=== PATIENT | female | born 1970 | race Caucasian/White ===

== ENCOUNTER 2018-02-03 07:47 | Day surgery (SDC) | payer BC ==
[~2018-02-03 07:47] MED LIST: Lactated Ringers 1,000 ML IV SCH; Propofol 200 MG/20 ML SDV ONE; Sodium Chloride 0.9% 10 ML Syringe FLUSH PRN
[2018-02-03] MEDS ORDERED: Propofol 200 MG/20 ML SDV ONE (08:43)
[2018-02-03] MEDS ORDERED: Glycopyrrolate 0.2 MG/ML SDV ONE (08:43)
[2018-02-03] MEDS ORDERED: Lidocaine 2% 100 MG/5 ML Syringe ONE (08:43)
--- NOTE | 2018-02-03 08:46 | PCM.PN ---
- General Info Date of Service: 02/03/18 - Review of Systems Systems Review Comment:: 48-year-old female referred for EGD. She has a history of mid upper chest pain not improved with PPI agent. This is improved with Maalox. I have discussed the proposed upper endoscopy with the patient. Her recent history and physical is reviewed and no significant changes are noted.She agrees to proceed accepting risks. - Patient Data Vitals - Most Recent: Last Vital Signs Temp 97.4 F 02/03/18 08:06 Pulse 67 02/03/18 08:06 Resp 20 02/03/18 08:06 BP 142/91 H 02/03/18 08:06 Pulse Ox 95 02/03/18 08:06 Weight - Most Recent: 63.503 kg Med Orders - Current: Current Medications Lactated Ringer's (Ringers, Lactated) 1,000 mls @ 125 mls/hr IV ASDIRECTED MACARIO Last Admin: 02/03/18 08:15 Dose: 125 mls/hr Sodium Chloride (Saline Flush) 10 ml FLUSH ASDIRECTED PRN PRN Reason: Keep Vein Open Discontinued Medications Propofol (Diprivan 20 Ml) Confirm Administered Dose 400 mg .ROUTE .STK-MED ONE Stop: 02/03/18 07:42 - Problem List Review Problem List Initiated/Reviewed/Updated: Yes - Assessment Assessment:: chest pain - Plan Plan:: EGD
--- NOTE | 2018-02-03 09:12 | PCM.OPNOTE ---
- General Post-Op/Procedure Note Date of Surgery/Procedure: 02/03/18 Operative Procedure(s): EGD with Biopsy Findings: Scattered areas of white coating in esophagus suggestive of desirae esophagitis Pre Op Diagnosis: Chest pain Post-Op Diagnosis: Desirae Esophagitis Anesthesia Technique: [facility] [place] Primary Surgeon: Justin Marx Pathology: Biopsies of Gastric Antrum and Esophagus Output, Urine Amount: 0 EBL in mLs: 3 Complications: None Condition: Good
--- NOTE | 2018-02-04 08:33 | OR ---
Date of Procedure: 02/03/2018 PREOPERATIVE DIAGNOSIS: Chest pain. POSTOPERATIVE DIAGNOSIS: Desirae esophagitis. OPERATION PERFORMED: Esophagogastroduodenoscopy with biopsy. INDICATIONS FOR SURGERY: This 48-year-old female has been experiencing intermittent symptoms of pain in her chest, which at times is associated with some difficulty swallowing. These symptoms have not responded to PPI agents and she comes for upper endoscopy. FINDINGS: In the mid and lower portion of the patient's esophagus, there were scattered patches of white material, suggestive of Desirae esophagitis. The esophagus does not otherwise appeared acutely inflamed and the GE junction looked normal with a distinct Z-line. The stomach and duodenum also appeared normal. DESCRIPTION OF PROCEDURE: The patient was taken to the operating room. She was given intravenous sedation, and her throat was topically anesthetized. The esophagus was intubated with the Olympus gastroscope under direct visualization. The scope was then carefully advanced down through the esophagus, stomach, and duodenum, where examination to the 3rd portion was performed. After examining the duodenum, the scope was withdrawn back into the stomach and random biopsies of the antrum were taken. This was performed to rule out H. pylori. Retroflexed examination of the fundus was also performed. The GE junction was carefully examined, then biopsies of this area are taken as well. The esophagus was then re-examined as the scope was withdrawn. Biopsies of the abnormality noted on the esophageal mucosa were taken to rule out Desirae esophagitis. After the exam had been completed, the scope was removed and the patient was taken from the operating room in satisfactory condition. ESTIMATED BLOOD LOSS: 3 mL. COMPLICATIONS: None. PROGNOSIS: Good. ROCHELLE Marx MD /[id number]
== END 2018-02-03 10:49 | disposition home or self-care (01) ==
LOC: LL.SDS 07:47
PROVIDERS: ATTEND Surgery
DX: K20.9 Esophagitis, unspecified (principal); F17.210 Nicotine dependence, cigarettes, uncomplicated; K21.9 Gastro-esophageal reflux disease without esophagitis; E78.5 Hyperlipidemia, unspecified; I25.10 Atherosclerotic heart disease of native coronary artery without angina pectoris; F41.9 Anxiety disorder, unspecified; Z79.899 Other long term (current) drug therapy; Z88.1 Allergy status to other antibiotic agents; Z91.040 Latex allergy status
CPT/HCPCS: 43239; J2704; J7120

== ENCOUNTER 2024-04-13 10:23 | Day surgery (SDC) | payer BC ==
[~2024-04-13 10:23] MED LIST changes: -Lactated Ringers 1,000 ML IV SCH; +Midazolam 1 MG/ML 2 ML SDV ONE; -Sodium Chloride 0.9% 10 ML Syringe FLUSH PRN
[2024-04-13] MEDS ORDERED: Sodium Chloride 0.9% 10 ML Syringe FLUSH PRN (10:30)
[2024-04-13] MEDS: Lactated Ringers 1,000 ML IV SCH (11:12)
[2024-04-13] MEDS ORDERED: Propofol 200 MG/20 ML SDV IV ONE (11:26)
[2024-04-13] MEDS ORDERED: Lidocaine 2% 5 ML SDV ONE (11:26)
== END 2024-04-13 12:41 | disposition home or self-care (01) ==
LOC: LL.SDS 10:23
PROVIDERS: ATTEND Surgery
DX: Z12.11 Encounter for screening for malignant neoplasm of colon (principal); K57.30 Diverticulosis of large intestine without perforation or abscess without bleeding; K21.9 Gastro-esophageal reflux disease without esophagitis; Z80.0 Family history of malignant neoplasm of digestive organs; F41.9 Anxiety disorder, unspecified; F17.210 Nicotine dependence, cigarettes, uncomplicated; Z79.899 Other long term (current) drug therapy
CPT/HCPCS: 43239; 45378; J2250; J2704; J7120; J3490